=== PATIENT | female | born 2000 | race Caucasian/White ===

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

== ENCOUNTER → 2019-12-23 | Outpatient (CLI) | payer OTHER | LOC: LAB 14:09 | DX: Z20.828 Contact with and (suspected) exposure to other viral communicable diseases (principal) ==

== ENCOUNTER → 2020-06-15 | Outpatient (CLI) | payer OTHER | LOC: LAB 15:49 | DX: Z11.3 Encounter for screening for infections with a predominantly sexual mode of transmission (principal) ==

== ENCOUNTER → 2020-07-23 | Outpatient (CLI) | payer OTHER ==
[2020-07-24 12:33] LABS: AFFIRM VAGINITIS PANEL RESULTS AMS
== END ==
LOC: LAB 11:13
PROVIDERS: Physician Assistant
DX: Z01.419 Encounter for gynecological examination (general) (routine) without abnormal findings (principal)

== ENCOUNTER → 2020-07-29 | Outpatient (CLI) | payer OTHER | LOC: LAB 14:21 | DX: R05 Cough (principal); Z20.822 Contact with and (suspected) exposure to COVID-19 ==

== ENCOUNTER → 2020-10-03 | Outpatient (CLI) | payer SELFPAY ==
[2020-10-03 12:25] LABS: EOS # 0.2 (0.04-0.40); EOS % 3.1 % (1.0-5.0); HEMATOCRIT 41.2 % (37.0-47.0); HEMOGLOBIN 12.9 g/dL (12.5-16.0); LYMPH# 1.6 (1.50-4.00); MEAN CELL VOLUME 83 fl (78-100); MEAN CORPUSCULAR HEMOGLOBIN 26 pg (27-31); MEAN CORPUSCULAR HGB CONC 31 g/dL (33-37); MEAN PLATELET VOLUME 9.4 fl (7.4-10.4); MONO # 0.7 (0.20-0.80); NEU # 3.9 (1.40-6.50); PLATELET COUNT 366 K/mm3 (130-400); RED BLOOD COUNT 4.94 M/mm3 (4.10-5.30); RED CELL DISTRIBUTION WIDTH 14.9 % (11.5-14.5); WHITE BLOOD COUNT 6.5 K/mm3 (4.8-10.8)
[2020-10-03 12:34] LABS: ALBUMIN 4.1 g/dL (3.5-5.0)
[2020-10-03 12:35] LABS: POTASSIUM 4.3 mmol/L (3.5-5.1)
[2020-10-03 12:36] LABS: CALCIUM 9.3 mg/dL (8.3-10.5)
[2020-10-03 12:37] LABS: TOTAL PROTEIN 7.9 g/dL (6.4-8.3)
[2020-10-03 12:39] LABS: TOTAL BILIRUBIN 0.8 mg/dL (0.2-1.2)
== END ==
LOC: LAB 12:00
PROVIDERS: Physician Assistant
DX: R07.0 Pain in throat (principal)

== ENCOUNTER 2021-08-27 08:04 | Emergency (ER) | payer BC ==
[~2021-08-27] VITALS: Ht 160 cm; Wt 111.8 kg
[2021-08-27] MEDS ORDERED: SINGULAIR PO ×2 (08:18→08:52)
[2021-08-27] MEDS ORDERED: ZITHROMAX Z PA250 MG PO (08:52)
[2021-08-27] MEDS ORDERED: RT ALBUTEROL CC18 GM IH (08:52)
[2021-08-27] MEDS ORDERED: PREDNISONE20 MG PO (08:52)
[2021-08-27] MEDS ORDERED: ALBUTEROL2.5 MG/3 M IH (08:52)
[2021-08-27 09:37] VITALS: BP 154/100
== END 2021-08-27 09:39 | disposition home or self-care (01) ==
LOC: ED 08:04
DX: R05.9 Cough, unspecified (principal)
CPT/HCPCS: J2930